=== PATIENT | female | born 1950 | race Caucasian/White ===

== ENCOUNTER → 2021-04-17 | Outpatient (CLI) | payer MEDICARE ==
[~2021-04-17] MED LIST: MOBIC7.5 MG PO; NORCO 5-325 TA1 EACH PO; PERCOCET 10-321 EACH PO; PROTONIX40 MG PO; ZETIA10 MG PO
== END ==
LOC: RAD 11:31
DX: M89.372 Hypertrophy of bone, left ankle and foot (principal)
CPT/HCPCS: 73620